=== PATIENT | male | born 1965 | race Caucasian/White ===

== ENCOUNTER 2023-05-15 22:21 | Emergency (ER) | payer OTHER, SELFPAY ==
[2023-05-15 22:26] VITALS: BP 160/112
[2023-05-15 22:37] VITALS: BMI 33.2
[2023-05-15 23:00] VITALS: BP 180/96
[2023-05-16] VITALS: BP 190/102
[2023-05-16] MEDS: DILAUDID 1 MG IM (00:52)
--- NOTE | 2023-05-16 00:54 | ED.GENMED ---
Addendum entered and electronically signed by Jamey Vidales DO 05/16/23 02:05:
Update patient appears comfortable able to ambulate per report from nursing,
Patient upset with no advanced imaging he would like to have an MRI explained to him that there is no indication for MRI through the ER he is already had a CAT scan in [place]
Encouraged to follow-up with his PCP, I did give the number for on-call spine pain management
Original Note:
History of Present Illness
General
Chief Complaint: Back Pain
Source: patient
Exam Limitations: none
Time Seen by Provider: 05/16/23 00:39
Nursing documentation reviewed up to this point in time: agreed with
Travel History
Have you had any contact with someone who has COVID-19?: No
Do you have any symptoms of coronavirus? Fever > 100 degrees, chills, cough, shortness of breath, sore throat, loss of taste or smell, muscle aches, or headache?: No
History of Present Illness
History of Present Illness:
58-year-old male week or 2 left low back pain was in [place] on vacation thought he had a kidney stone, had a CAT scan told he had sciatica was given pain meds and steroids said intermittent persistent pain since then tonight it was so bad he could
barely walk call 911 pain is sharp in his buttock goes down into his knee down to his legs no bowel or bladder changes no fever or chills, no dysuria or frequency, he is unsure what meds he took earlier, apparently had some prescriptions for [place]
and had some prescriptions from [place] he is unsure what he was taking is yet to see a pain management or neurosurgeon physician
Past History
Past History
ED Past Medical History: HTN, Hypercholesterolemia and Other (Kidney stones)
ED Past Surgical History: Other (Recent fracture of left hand. hernia repair on left. is aware on right but has not caused him pain)
Social History
Tobacco: Smoker
Alcohol: Former
Drug: None
Personal:
Living: with family
Employment: Employed
Review of Systems
Review of Systems
All Other Systems: Not applicable
Constitutional: Reports no symptoms; Denies fever or fatigue
EENT: Reports no symptoms
Respiratory: Reports no symptoms
Cardiac: Reports no symptoms
: Reports no symptoms
Musculoskeletal: Reports back pain
Skin: Reports no symptoms
Neurological: Reports numbness; Denies dizzy or weakness
Endocrine: Reports no symptoms
Phy Exam
Physical Exam
Physical Exam:
Physical Exam
General: 58 male lying on his side looks uncomfortable
Neck: No jaundice
Heart: s1/s2 regular rate and rhythm, no murmur. equal radial pulses.
Lungs: no acute respiratory distress. clear bilaterally
Abdomen: Soft nontender
Neuro: alert and oriented. Painful straight leg raise on the left at around 15 to 20 degrees straight leg raise on the right gives pain on the left
Skin: no rash
Psychiatric: well kept. interactive and cooperative
Extremities: no edema.
Course
Orders/Labs/Results
Orders:
Orders
05/16/23 00:49
HYDROmorphone [Dilaudid] 1 mg IM NOW STA
Vital Signs
Initial and Last Documented VS:
Initial Vital Signs
Temp Pulse Resp BP Pulse Ox
97 F 92 28 160/112 100
05/15/23 22:26 05/15/23 22:26 05/15/23 22:26 05/15/23 22:26 05/15/23 22:26
Last Documented Vital Signs
Temp Pulse Resp BP Pulse Ox
97 F 90 18 190/105 99
05/15/23 22:26 05/16/23 01:00 05/16/23 01:00 05/16/23 01:00 05/16/23 01:00
MDM/Problems Addressed
Differential Diagnosis Includes:
Sciatica herniated disc doubt discitis or epidural abscess no fever
MDM/Problems Addressed:
Low back pain/sciatic
Chronic conditions affecting care: HTN and Other
Acute Exacerbation and/or Progression of Chronic Illness: HTN
*Pulse Oximetry
Patient hypoxic: no
*Critical Care Note
Total Time (30-74mins, 75-104mins- exclusive of procedures): Not Applicable
Update Note
Update Note:
1 AM, patient appears to have sciatica herniated disc no fever, will try to get him comfortable attempted to review his PDMP was unsuccessful we will try again once his demographics have included
PDMP noted was given a prescription by his family doctor last week
ED Attending Note
-
Portions of this chart may have been created with voice recognition software.� Occasional wrong word or��sound alike� substitutions may have occurred due to the inherent limitations of voice recognition software.
Discharge Plan
Departure
Patient Disposition: Home (Routine Discharge)
Date of Disposition: 05/16/23
Time of Disposition: 01:40
Patient with high blood pressure during this ER visit?: No
Condition: Good
Discharge Problem:
Low back pain
Instructions: Radiculopathy (DC), Sciatica (DC)
Prescriptions:
No Action
multivitamin [Daily Multiple] 1 EACH tablet
1 ea PO DAILY
Say's wort 300 MG tablet
300 mg PO DAILY
omeprazole 40 MG capsule,delayed release(DR/EC)
20 mg PO DAILY
rosuvastatin 5 MG tablet
40 mg PO QPM
Patient Comments:
cetirizine 10 MG tablet
10 mg PO DAILY
lisinopril 20 MG tablet
20 mg PO DAILY
fenofibric acid 105 MG tablet
105 mg PO DAILY
hydrocodone-acetaminophen 1 TABLET tablet
1 tab PO Q4HPRN PRN (Reason: breakthrough pain) Qty: 10 0RF
tamsulosin 0.4 MG capsule
0.4 mg PO DAILY Qty: 7 0RF
diclofenac sodium 75 MG tablet,delayed release (DR/EC)
75 mg PO BID Qty: 10 0RF
cephalexin 500 MG capsule
500 mg PO QID Qty: 40 0RF
Referrals:
Mai Clement MD [Family Provider] - Next open appointment
Shanika Khalil MD [Active] - Next open appointment
Activity Restrictions/Additional Instructions:
Continue pain medications as prescribed by your family doctor
Call Dr. Khalil tomorrow to discuss your symptoms and arrange follow-up care
Interventions
Interventions:
*Risk Screen - Suicide Last Done: 05/15/23 22:26
*General Assessment Last Done: 05/15/23 22:37
*Neglect/Abuse Screening Last Done: 05/15/23 22:26
ED- Fall Risk Assessment Last Done: 05/15/23 22:40
*ED COVID-19 Vaccine History Last Done: 05/15/23 22:37
ED-Musculoskeletal Assessment Last Done: 05/15/23 22:40
[2023-05-16 01:00] VITALS: BP 190/105
[2023-05-16 01:59] VITALS: BP 180/99
== END 2023-05-16 02:09 | disposition home or self-care (01) ==
LOC: EMR 22:21
PROVIDERS: EMERGENCY PHYSICIAN Emergency Medicine; FAMILY PHYSICIAN Emergency Medicine
DX: M54.50 Low back pain, unspecified (principal); I10 Essential (primary) hypertension; E78.00 Pure hypercholesterolemia, unspecified; F17.200 Nicotine dependence, unspecified, uncomplicated; Z87.442 Personal history of urinary calculi
CPT/HCPCS: 99282; 96372

== ENCOUNTER → 2025-03-06 12:23 | Outpatient (REF) | payer BC, SELFPAY | LOC: DHSLP 12:23 | PROVIDERS: ATTENDING PHYSICIAN Internal Medicine; FAMILY PHYSICIAN Family Medicine | DX: G47.33 Obstructive sleep apnea (adult) (pediatric) (principal); R09.02 Hypoxemia | CPT/HCPCS: 95800 ==